=== PATIENT | female | born 1995 | race American Indian/Alaskan Native ===

== ENCOUNTER 2017-11-06 20:45 | Emergency (ER) | payer MEDICAID ==
[2017-11-06 22:15] LABS: Bilirubin,Urine NEG (Negative); Blood,Urine LG (Negative); Color,Urine Yellow (Yellow); Mucus,Urine FEW /HPF; Nitrite,Urine NEG (Negative); Urobilinogen,Urine < 2.0 mg/dL (<2.0)
[2017-11-06 22:17] LABS: HCG Qualitative,Urine Negative (Negative)
[2017-11-07] MEDS ORDERED: MOTRIN PO ONE (08:35)
--- NOTE | 2017-11-07 08:46 | Emergency Department Report ---
HPI - General Chief Complaint: Abdominal Pain Time Seen by Provider: 11/07/17 08:14 - HPI HPI: Patient is a 22-year-old female presents to ED complaining of increasing urinary frequency times a few days. Patient states she has a history of kidney infections and was worried that this might be what it is. Patient states and admits to lower back pain but denies dysuria, hematuria, vaginal discharge, abdominal pain, flank pain. Patient describes pain to the back as throbbing and aching in nature and localized to the back. Patient denies any trauma or injuries to the back. Patient states last menstrual period 10/31/2017. ED Past Medical Hx - Past Medical History Hx Hypertension: No Hx Congestive Heart Failure: No Hx Diabetes: No Hx Deep Vein Thrombosis: No Hx Renal Disease: No Hx Sickle Cell Disease: No Hx Seizures: No Hx Asthma: No Hx COPD: No Hx HIV: No - Surgical History Additional Surgical History: c sect - Social History Smoking Status: Never Smoker Substance Use Type: None - Medications Home Medications: Home Medications Medication Instructions Recorded Confirmed Last Taken Type Acetaminophen [Acetaminophen TAB] 325 mg PO Q6HR PRN #30 tablet 11/13/16 Unknown Rx Famotidine [Pepcid] 20 mg PO BID #60 tablet 11/13/16 04/15/17 Unknown Rx Nitrofurantoin [place]/M-Cryst 100 mg PO Q12HR #20 capsule 11/13/16 04/15/17 Unknown Rx [Macrobid CAP] Ondansetron [Zofran Odt] 4 mg PO [id number] #30 tab.rapdis 11/13/16 04/15/17 Unknown Rx Ferrous Sulfate [Feosol 325 MG tab] 325 mg PO BID #60 tablet 04/14/17 Unknown Rx HYDROcodone/APAP 5-325 [[place] 1 each PO Q6HR PRN #30 tablet 04/14/17 Unknown Rx 5/325] Vit Calc,Iron,Folic 1 each PO DAILY #30 tablet 04/14/17 Unknown Rx [ Vitamins] Ibuprofen [Motrin 800 MG tab] 800 mg PO Q8HR PRN #30 tablet 11/07/17 Unknown Rx ED Review of Systems ROS: Stated complaint: BACK PAIN Other details as noted in HPI Constitutional: denies: chills, fever Eyes: denies: eye pain, eye discharge, vision change ENT: denies: ear pain, throat pain Respiratory: denies: cough, shortness of breath, wheezing Cardiovascular: denies: chest pain, palpitations Endocrine: no symptoms reported Gastrointestinal: denies: abdominal pain, nausea, diarrhea Genitourinary: denies: urgency, dysuria, discharge Musculoskeletal: denies: back pain, joint swelling, arthralgia Skin: denies: rash, lesions Neurological: denies: headache, weakness, paresthesias Psychiatric: denies: anxiety, depression Hematological/Lymphatic: denies: easy bleeding, easy bruising Physical Exam - Physical Exam Vital Signs: Vital Signs 11/06/17 21:38 Temperature 98.3 F Pulse Rate 63 Respiratory 15 Rate Blood Pressure 101/54 O2 Sat by Pulse 98 Oximetry Physical Exam: GENERAL: Alert and oriented x3, no apparent distress, Normal Gait, atraumatic. HEAD: Head is normocephalic and a-traumatic. MOUTH:Mouth is well hydrated and without lesions. LUNGS: Symetrical with respiration, No wheezing, no rales or crackles, CTAB. HEART: S1, S2 present, regular rate and rhythm without murmur, no rubs, no gallops. Non tender to palpation ABDOMEN: No organomegaly was noted,Positive bowel sounds, soft, and non- distended. . Nontender to palpation on all Quadrants, NO CVA tenderness. BACK: Full range of motion, no spinal tenderness, nontender to palpation. EXTREMITIES/MUSCULOSKELETAL: No cyanosis, clubbing, rash, lesions or edema. Full ROM bilaterally. UE/LE Pulses 2+ bilaterally. NEUROLOGIC: The patient is cooperative with no focal neurologic deficits.. SKIN: Warm and dry, No lesions, No ulceration or induration present. ED Course Vital Signs 11/06/17 21:38 Temperature 98.3 F Pulse Rate 63 Respiratory 15 Rate Blood Pressure 101/54 O2 Sat by Pulse 98 Oximetry ED Medical Decision Making - Lab Data Laboratory Last Values Urine Color Yellow (Yellow) 11/06/17 21:55 Urine Turbidity Clear (Clear) 11/06/17 21:55 Urine pH 5.0 (5.0-7.0) 11/06/17 21:55 Ur Specific [place] 1.027 (1.003-1.030) 11/06/17 21:55 Urine Protein 100 mg/dl mg/dL (Negative) 01/03/18 21:55 Urine Glucose (UA) Neg mg/dL (Negative) 11/06/17 21:55 Urine Ketones Neg mg/dL (Negative) 11/06/17 21:55 Urine Blood Lg (Negative) 11/06/17 21:55 Urine Nitrite Neg (Negative) 11/06/17 21:55 Urine Bilirubin Neg (Negative) 11/06/17 21:55 Urine Urobilinogen < 2.0 mg/dL (<2.0) 11/06/17 21:55 Ur Leukocyte Esterase Neg (Negative) 11/06/17 21:55 Urine WBC (Auto) 2.0 /HPF (0.0-6.0) 11/06/17 21:55 Urine RBC (Auto) 3.0 /HPF (0.0-6.0) 11/06/17 21:55 U Epithel Cells (Auto) 6.0 /HPF (0-13.0) 11/06/17 21:55 Urine Mucus Few /HPF 11/06/17 21:55 Urine HCG, Qual Negative (Negative) 11/06/17 21:55 - Medical Decision Making 22-year-old female presents to ED with myalgia of the lower back ED course: Patient received 1 dose of Motrin in ED. Vital signs are normal patient is in no acute distress Discussed with patient follow-up with primary care physician. Discussed the patient and take medications as prescribed. Patient has no neurological deficit. Patient is alert and oriented 3 and understands all instructions given. I discussed the patient to apply heat 3 times a day to lower back. I discussed with the patient to drink plenty of water. Due to the patient states she has a history of kidney infections I gave her referral to a [employer] police coxswain. I discussed with the patient if symptoms worsen to return to ED immediately Critical care attestation.: If time is entered above; I have spent that time in minutes in the direct care of this critically ill patient, excluding procedure time. ED Disposition Clinical Impression: Strain of muscle, fascia and tendon of lower back, initial encounter Disposition: TO HOME OR SELFCARE Is pt being admited?: No Does the pt Need Aspirin: No Condition: Stable Instructions: Muscle Strain (ED), Musculoskeletal Pain (ED) Additional Instructions: Make sure to follow up with the primary care physician as discussed. Take all your medications as you've been prescribed. If you have any worsening symptoms or develop new symptoms please return to ED immediately. Prescriptions: Ibuprofen [Motrin 800 MG tab] 800 mg PO Q8HR PRN #30 tablet PRN Reason: Moder Pain Unrelieved By [place] Referrals: PRIMARY CARE, [Primary Care Provider] - 3-5 Days ABENA MANZANO MD, PHD [Referring] - 3-5 Days KE TOLBERT MD [Staff Physician] - 3-5 Days [facility] [Outside] - 3-5 Days Forms: Accompanied Note, Work/School Release Form(ED) Time of Disposition: 08:59
[2017-11-07 09:22] VITALS: BP 90/57
== END 2017-11-07 09:21 | disposition home or self-care (01) ==
LOC: ED 20:45
DX: M54.9 Dorsalgia, unspecified (principal); Z53.21 Procedure and treatment not carried out due to patient leaving prior to being seen by health care provider
CPT/HCPCS: 81001; 81025